=== PATIENT | female | born 1950 | race Caucasian/White ===

== ENCOUNTER 2019-06-03 20:46 | Observation (INO) | payer MEDICARE, OTHER ==
[~2019-06-03] VITALS: Ht 152.4 cm; Wt 73.4 kg
[2019-06-03 21:50] LABS: BASOPHILS % (AUTO) 0.7 % (0-1); EOSINOPHILS # (AUTO) 0.4 X10'3 (0-0.9); EOSINOPHILS % (AUTO) 5.5 % (0-6); HEMATOCRIT 41.4 % (35.0-45.0); HEMOGLOBIN 14.1 g/dl (12.0-16.0); LYMPHOCYTES # (AUTO) 2.9 X10'3 (1.1-4.8); MEAN CORPUSCULAR HEMOGLOBIN 30.2 PG (27.0-31.0); MEAN CORPUSCULAR VOLUME 88.9 FL (78-98); MEAN PLATELET VOLUME 9.1 FL (7.4-10.4); MONOCYTES # (AUTO) 0.4 X10'3 (0-0.9); MONOCYTES % (AUTO) 6.3 % (2-12); NEUTROPHILS # (AUTO) 2.8 X10'3 (1.8-7.7); NEUTROPHILS % (AUTO) 43.5 % (42-75); PLATELET COUNT 218 X10'3 (140-440); RED BLOOD COUNT 4.66 X10'6 (4.20-5.60); RED CELL DISTRIBUTION WIDTH 13.6 % (11.5-14.5); WHITE BLOOD COUNT 6.5 X10'3 (4.5-11.0)
[2019-06-03 22:03] LABS: ALANINE AMINOTRANSFERASE 24 U/L (12-78); ALBUMIN 4.3 G/DL (3.4-5.0); ALBUMIN/GLOBULIN RATIO 1.2 (1.1-1.5); ALKALINE PHOSPHATASE 103 IU/L (46-116); ANION GAP 5 (8-16); ASPARTATE AMINO TRANSFERASE 14 U/L (10-37); BILIRUBIN,TOTAL 0.3 MG/DL (0.1-1.0); BLOOD UREA NITROGEN 13 MG/DL (7-18); BUN/CREATININE RATIO 16.7 (6.6-38.0); CALCIUM 9.6 MG/DL (8.5-10.1); CHLORIDE 105 MMOL/L (99-107); CREATININE 0.78 MG/DL (0.40-0.90); GLUCOSE 99 MG/DL (70-104); POTASSIUM 3.9 MMOL/L (3.5-5.1); SODIUM 142 MMOL/L (135-145); TOTAL CARBON DIOXIDE 31.8 MMOL/L (24-32); TOTAL PROTEIN 7.8 G/DL (6.4-8.2); eGFR 73 ML/MIN
[2019-06-03] MEDS ORDERED: nitroGLYCERIN 0.2mg/hour patch TD ONE (22:45)
[2019-06-03 23:04] LABS: PARTIAL THROMBOPLASTIN TIME 27 SECONDS (22-32)
[2019-06-04] VITALS (14 sets, daily range): BP systolic 101–133; BP diastolic 61–88
[2019-06-04] MEDS ORDERED: magnesium 4gm in 100ml NS 100 ML IV PRN (00:20)
[2019-06-04] MEDS ORDERED: magnesium 2GM in 50ml NS 50 ML IV PRN (00:20)
[2019-06-04] MEDS ORDERED: potassium CL 10mEq/100ml bag 100 ML IV PRN ×2 (00:20)
[2019-06-04] MEDS ORDERED: potassium Cl 20 mEq SR tablet PO PRN ×2 (00:20)
[2019-06-04] MEDS ORDERED: aminophylline 250mg/10ml inj. IV PRN (00:20)
[2019-06-04] MEDS ORDERED: mag hydrox/Alum hydrox/simeth 30ml oral suspension PO PRN (00:20)
[2019-06-04] MEDS ORDERED: hydrALAZINE 20mg/ml inj. IV PRN (00:20)
[2019-06-04] MEDS ORDERED: acetaminophen 325mg tablet PO PRN ×2 (00:20)
[2019-06-04] MEDS ORDERED: metoprolol tartrate 1mg/ml inj IV PRN (00:20)
[2019-06-04] MEDS ORDERED: nitroGLYCERIN 0.4mg SUBLingual tab SL PRN (00:20)
[2019-06-04] MEDS ORDERED: ondansetron/PF 4mg/2ml inj IV PRN (00:20)
[2019-06-04] MEDS ORDERED: regadenoson 0.4mg/5ml syringe IV ONE ×2 (00:20→06:00)
[2019-06-04 01:18] LABS: D-DIMER 0.22 MG/L FEU (0-0.50)
[2019-06-04] MEDS ORDERED: iohexol 350MG/ML 100ml bottle IV ONE (01:24)
--- NOTE | 2019-06-04 01:51 | NUR ---
pt placed on hospital bed for comfort
[2019-06-04] MEDS ORDERED: NO HOME MEDS (05:39)
--- NOTE | 2019-06-04 07:30 | NUR ---
Received report from FRANKLYN Anna from the ER. Pt sent up via hospital bed. Oriented pt to room and personal items. Assessed VS, performed a physical assessment, and completed a 2RN Skin check. VS: [id number]%-16 and 0/10 pain
[2019-06-04] MEDS ORDERED: K and/or MAG REPLACEMENT MC SCH (08:00)
[2019-06-04] MEDS ORDERED: heparin, porcine 5000 units/ml vial SQ SCH (08:00)
--- NOTE | 2019-06-04 08:55 | NUR ---
Pt sent via WC to [facility] stress test.
[2019-06-04] MEDS ORDERED: PANT40TA4 PO (13:23)
--- NOTE | 2019-06-04 14:10 | NUR ---
Piad Paula PAGER ID: [phone] MESSAGE: [id number]: April Benz - August I place pt on HH diet from NPO, pls advise, thank you -Tiffanie [phone]
--- NOTE | 2019-06-04 15:57 | NUR ---
Per MD order, pt stable to be discharged home. Answered and questions or concerns patient may have regarding discharge instructions. Called pts new prescription for protonix 40mg to [facility] [address]. Pt will make future appt with PCP. Tele monitor removed. PIV removed, cannula intact. Pt sent with belongings. Pt sent down with aide and son via wheelchair to personal vehicle.
--- NOTE | 2019-06-05 14:29 | NUR ---
Case Management DC follow up: spoke to pt via telephone: reported, "feeling much better', "got some rest, slept in". "Everyone was so thorough,and took great care of me", "Everyone was so nice". Denies SOB, resp distress, NV, dizziness, abd pain, SWARTZ, cp, emergent general pain. remains afebrile. verbalizes understanding of s/s that would warrant 9-11/ER visit for evaluation. pt does not have home meds, but is picking up a new Rx for Protonix today. pt goes to [facility], but has no PCP at this time. pt states she will be calling to make appt and establish a PCP to monitor health. Understands the new Rx and what it is for. needs met, questions answered at IN. No further questions at this time.
== END 2019-06-04 16:00 | disposition home or self-care (01) ==
LOC: ER 20:46 → ED HOLD 06-04 00:20 → EDBEDREQ 06-04 06:32 → PCU 3S 06-04 07:37
PROVIDERS: ADMIT Family Medicine; ATTEND Family Medicine
DX: R07.89 Other chest pain (principal); R06.02 Shortness of breath; I10 Essential (primary) hypertension; Z87.891 Personal history of nicotine dependence; Z90.49 Acquired absence of other specified parts of digestive tract; Z90.710 Acquired absence of both cervix and uterus; Z79.899 Other long term (current) drug therapy; Z88.5 Allergy status to narcotic agent; R53.1 Weakness; R41.3 Other amnesia
CPT/HCPCS: 36415; 70496; 70498; 70544; 70551; 71045; 71275; 78452; 80053; 83880; 84484; 85025; 85379; 85610; 85730; 93005; 93017; 93306; 96372; 96374; 99285; A9500; G0378; J0280; J1644; J2785; Q9967

== ENCOUNTER 2019-10-09 15:10 | Emergency (ER) | payer MEDICARE, OTHER ==
[~2019-10-09] VITALS: Ht 152.4 cm; Wt 73.6 kg
[~2019-10-09 15:10] MED LIST: PANT40TA4 PO
[2019-10-09 15:54] LABS: BASOPHILS # (AUTO) 0.1 X10'3 (0-0.2); BASOPHILS % (AUTO) 1.2 % (0-1); EOSINOPHILS # (AUTO) 0.3 X10'3 (0-0.9); EOSINOPHILS % (AUTO) 5.6 % (0-6); HEMATOCRIT 43.1 % (35.0-45.0); HEMOGLOBIN 14.5 g/dl (12.0-16.0); LYMPHOCYTES # (AUTO) 2.3 X10'3 (1.1-4.8); LYMPHOCYTES % (AUTO) 40.6 % (21-51); MEAN CORPUSCULAR HEMOGLOBIN 31.3 PG (27.0-31.0); MEAN CORPUSCULAR HGB CONC 33.7 g/dL (33.0-36.5); MEAN CORPUSCULAR VOLUME 92.7 FL (78-98); MEAN PLATELET VOLUME 9.8 FL (7.4-10.4); MONOCYTES # (AUTO) 0.4 X10'3 (0-0.9); MONOCYTES % (AUTO) 6.5 % (2-12); NEUTROPHILS # (AUTO) 2.6 X10'3 (1.8-7.7); NEUTROPHILS % (AUTO) 46.1 % (42-75); PLATELET COUNT 208 X10'3 (140-440); RED BLOOD COUNT 4.65 X10'6 (4.20-5.60); RED CELL DISTRIBUTION WIDTH 13.9 % (11.5-14.5); WHITE BLOOD COUNT 5.7 X10'3 (4.5-11.0)
[2019-10-09 16:07] LABS: ALANINE AMINOTRANSFERASE 35 U/L (12-78); ALBUMIN 4.4 G/DL (3.4-5.0); ALBUMIN/GLOBULIN RATIO 1.3 (1.1-1.5); ALKALINE PHOSPHATASE 92 IU/L (46-116); ANION GAP 12 (8-16); ASPARTATE AMINO TRANSFERASE 22 U/L (10-37); BILIRUBIN,TOTAL 0.4 MG/DL (0.1-1.0); BLOOD UREA NITROGEN 11 MG/DL (7-18); BUN/CREATININE RATIO 14.1 (6.6-38.0); CALCIUM 9.3 MG/DL (8.5-10.1); CHLORIDE 106 MMOL/L (99-107); CREATININE 0.78 MG/DL (0.40-0.90); GLUCOSE 105 MG/DL (70-104); POTASSIUM 3.8 MMOL/L (3.5-5.1); SODIUM 144 MMOL/L (135-145); TOTAL CARBON DIOXIDE 25.7 MMOL/L (24-32); TOTAL PROTEIN 7.9 G/DL (6.4-8.2); eGFR 73 ML/MIN
[2019-10-09 16:58] LABS: D-DIMER 0.23 MG/L FEU (0-0.50)
--- NOTE | 2019-10-09 17:17 | NUR ---
Vascular in at bedside.
[2019-10-09 17:46] VITALS: BP 141/74
== END 2019-10-09 17:49 | disposition home or self-care (01) ==
LOC: ER 15:10
DX: M79.604 Pain in right leg (principal); R06.02 Shortness of breath; R42 Dizziness and giddiness; R11.0 Nausea; M79.89 Other specified soft tissue disorders; I25.10 Atherosclerotic heart disease of native coronary artery without angina pectoris; I10 Essential (primary) hypertension; F17.200 Nicotine dependence, unspecified, uncomplicated; Z90.49 Acquired absence of other specified parts of digestive tract; Z90.710 Acquired absence of both cervix and uterus; Z88.5 Allergy status to narcotic agent; Z79.899 Other long term (current) drug therapy
CPT/HCPCS: 36415; 71045; 80053; 84484; 85025; 85379; 93005; 93971; 99285

== ENCOUNTER 2020-12-01 09:24 | Day surgery (SDC) | payer MEDICARE, OTHER ==
[~2020-12-01] VITALS: Ht 152.4 cm; Wt 69.5 kg
[~2020-12-01 09:24] MED LIST changes: -PANT40TA4 PO; +PANT40TA54 PO
[2020-12-01 09:38] VITALS: BP 134/80
[2020-12-01] MEDS ORDERED: OMEP-50 PO (09:42)
[2020-12-01] MEDS ORDERED: SERT100T PO (09:43)
[2020-12-01] MEDS ORDERED: SIMV-45 PO (09:43)
[2020-12-01] MEDS ORDERED: SERT-153 PO (09:43)
[2020-12-01] MEDS ORDERED: LIDOcaine Viscous 15ml cup ONE (09:53)
[2020-12-01] MEDS ORDERED: fentaNYL/PF 50MCG/1 ML 2ML syringe ONE (09:53)
[2020-12-01] MEDS ORDERED: MIDAZolam 1 MG/ML 5ML VIAL ONE (09:53)
[2020-12-01 12:05] VITALS: BP 123/74
[2020-12-01 12:15] VITALS: BP 114/72
[2020-12-01 12:25] VITALS: BP 140/84
[2020-12-01 12:35] VITALS: BP 137/78
== END 2020-12-01 12:52 | disposition home or self-care (01) ==
LOC: GI LAB 09:24
PROVIDERS: ATTEND Internal Medicine Gastroenterology
DX: R12 Heartburn (principal); K21.00 Gastro-esophageal reflux disease with esophagitis, without bleeding; K44.9 Diaphragmatic hernia without obstruction or gangrene; K29.60 Other gastritis without bleeding; K25.9 Gastric ulcer, unspecified as acute or chronic, without hemorrhage or perforation; Z88.5 Allergy status to narcotic agent
CPT/HCPCS: 43239; G0500; J2250; J3010; J7040; Z7512; 99152; A4620

== ENCOUNTER 2022-02-11 16:24 | Emergency (ER) | payer MEDICARE, OTHER ==
[~2022-02-11] VITALS: Ht 157.5 cm; Wt 77.3 kg
[~2022-02-11 16:24] MED LIST changes: +OMEP20CA16 PO; -PANT40TA54 PO; +SERT-153 PO; +SERT100T PO; +SIMV-45 PO
[2022-02-11 17:20] VITALS: BP 145/99
[2022-02-11 17:43] LABS: BASOPHILS % (AUTO) 0.5 % (0-1); EOSINOPHILS # (AUTO) 0.2 X10'3 (0-0.9); EOSINOPHILS % (AUTO) 3.1 % (0-6); HEMOGLOBIN 15.2 g/dl (12.0-16.0); LYMPHOCYTES # (AUTO) 1.1 X10'3 (1.1-4.8); LYMPHOCYTES % (AUTO) 17.1 % (21-51); MEAN CORPUSCULAR HEMOGLOBIN 29.9 PG (27.0-31.0); MEAN CORPUSCULAR HGB CONC 34.5 g/dL (33.0-36.5); MEAN CORPUSCULAR VOLUME 86.8 FL (78-98); MEAN PLATELET VOLUME 8.9 FL (7.4-10.4); MONOCYTES # (AUTO) 0.4 X10'3 (0-0.9); MONOCYTES % (AUTO) 5.6 % (2-12); NEUTROPHILS # (AUTO) 4.7 X10'3 (1.8-7.7); NEUTROPHILS % (AUTO) 73.7 % (42-75); PLATELET COUNT 160 X10'3 (140-440); RED BLOOD COUNT 5.07 X10'6 (4.20-5.60); RED CELL DISTRIBUTION WIDTH 14.1 % (11.5-14.5); WHITE BLOOD COUNT 6.4 X10'3 (4.5-11.0)
[2022-02-11 17:58] LABS: ALANINE AMINOTRANSFERASE 27 U/L (12-78); ALBUMIN 4.8 G/DL (3.4-5.0); ALBUMIN/GLOBULIN RATIO 1.2 (1.1-1.5); ALKALINE PHOSPHATASE 113 IU/L (46-116); ANION GAP 8 (8-16); ASPARTATE AMINO TRANSFERASE 14 U/L (10-37); BILIRUBIN,TOTAL 0.5 MG/DL (0.1-1.0); BLOOD UREA NITROGEN 10 MG/DL (7-18); BUN/CREATININE RATIO 13.7 (6.6-38.0); CALCIUM 9.9 MG/DL (8.5-10.1); CHLORIDE 101 MMOL/L (99-107); CREATININE 0.73 MG/DL (0.40-0.90); GLUCOSE 108 MG/DL (70-104); POTASSIUM 3.8 MMOL/L (3.5-5.1); SODIUM 136 MMOL/L (135-145); TOTAL CARBON DIOXIDE 26.9 MMOL/L (24-32); TOTAL PROTEIN 8.7 G/DL (6.4-8.2); eGFR 78 ML/MIN
[2022-02-11 18:06] LABS: MAGNESIUM 2.4 MG/DL (1.5-2.4)
== END 2022-02-11 21:18 | disposition home or self-care (01) ==
LOC: ER 16:26
DX: F41.9 Anxiety disorder, unspecified (principal); R07.89 Other chest pain; R51.9 Headache, unspecified; I10 Essential (primary) hypertension; Z88.5 Allergy status to narcotic agent; Z90.49 Acquired absence of other specified parts of digestive tract; Z90.710 Acquired absence of both cervix and uterus
CPT/HCPCS: 36415; 71045; 80053; 83735; 83880; 84484; 85025; 93005; 99285